=== PATIENT | female | born 1980 | race Caucasian/White ===

== ENCOUNTER → 2019-08-07 11:05 | Outpatient (BNVA) | payer MEDICAID, SELFPAY | PROVIDERS: Referring Provider Physician Assistant; Visit Provider Obstetrics & Gynecology | DX: D25.9 Leiomyoma of uterus, unspecified (principal); N92.0 Excessive and frequent menstruation with regular cycle | CPT/HCPCS: 84443; 85027 ==

== ENCOUNTER 2022-04-02 07:17 | Emergency (ER) | payer MEDICAID, SELFPAY ==
[2022-04-02 07:24] VITALS: BP 164/90; PULSE 79; RESP 18; TEMP 36.6; O2SAT 97; BMI 44.2
--- NOTE | 2022-04-02 07:44 | W.ED.URI ---
HPI - URI/Sore Throat General: Chief Complaint: Upper Respiratory Infection Stated Complaint: Throat sore Time Seen by Provider: 04/02/22 07:40 Source: patient Mode of arrival: ambulatory History of Present Illness: 42-year-old female presents emergency room with complaint of sore throat for the last 2 to 3 days. No nausea vomiting diarrhea or rash. No fever that she is noted. She has had problems with strep pharyngitis in the past. She has not seen anyone for it. No cough no shortness of breath. MD elicited complaint: sore throat Onset (ago): day(s) Consistency: constant Severity: mild Exacerbating factors: nothing Relieving factors: nothing Associated symptoms: Reports change in voice, congestion, nasal congestion and sore throat; Deny abdominal pain, chills, chest pain, cough, diarrhea, epistaxis, ear or mastoid pain, fever(s), headache(s), myalgias, nausea, rhinorrhea, short of breath, sinus pain, stiffness or vomiting Treatments prior to arrival: none Review of Systems Const: Denies: fever(s), chills, malaise or night sweats ENMT: Reports: throat pain and nasal congestion; Denies: ear or mastoid pain, epistaxis or sinus pain Card: Denies: chest pain Resp: Denies: dyspnea, productive cough or non-productive cough GI: Denies: abdominal pain, nausea, vomiting or diarrhea : Denies: flank pain, difficulty voiding, dysuria, urinary frequency or urinary urgency Skin/Breast: Denies: rash or pruritus Neuro: Denies: headache(s) PFSH ED PFSH: Medical History No known health problems Surgical History No history of previous surgery Family History Grandmother Diabetes maternal Social History Smoking and tobacco status: former smoker Quit status (tobacco): has quit using tobacco Year quit tobacco: 8 years ago Alcohol intake: never Additional social history: well- balanced Physical Exam Const: COMMON NORMALS: no acute distress GENERAL APPEARANCE: cooperative and comfortable ORIENTATION/CONSCIOUSNESS: Yes awake, Yes oriented to person, Yes oriented to place and Yes oriented to time HENMT: COMMON NORMALS: normocephalic, atraumatic, hearing grossly normal bilaterally, external ears normal, EAC's normal, TM's normal bilaterally, Normal nasal mucous membranes and turbinates present, moist oral mucous membranes and oropharynx normal HEAD & SCALP: normocephalic and atraumatic NOSE: Normal nasal mucous membranes and turbinates present EXTERNAL EAR: Yes external ears normal EXTERNAL AUDITORY CANAL: EAC's normal TYMPANIC MEMBRANE: TM's normal bilaterally Eye: COMMON NORMALS: Equal, round and reactive pupils present, EOMs intact bilaterally, conjunctivae normal and no scleral icterus CONJUNCTIVA: Yes conjunctivae normal PUPIL: Yes Equal, round and reactive pupils present Neck/C-Spine: COMMON NORMALS: full ROM, no lymphadenopathy, supple and no JVD Lymph: LYMPHATIC: no lymphadenopathy noted and no lymphedema noted Resp: COMMON NORMALS: normal respiratory effort, No retractions, No use of accessory muscles and clear to auscultation bilaterally AUSCULTATION: clear to auscultation bilaterally Cardio: COMMON NORMALS: no JVD, regular rate, regular rhythm and No murmurs present (Cardio) RATE: regular rate RHYTHM: regular rhythm GI: COMMON NORMALS: Soft to palpation and No hepatosplenomegaly present AUSCULTATION: Yes normoactive bowel sounds PALPATION: Yes Soft to palpation, No Tenderness to palpation present (GI), No Guarding due to palpation present (GI) and Yes No hepatosplenomegaly present Extremity: COMMON NORMALS: normal to inspection, capillary refill normal, no clubbing, cyanosis or edema, no calf tenderness and no pedal edema Neuro: SENSORIUM/ORIENTATION: Yes oriented to person, Yes oriented to place and Yes oriented to time Skin: COMMON NORMALS: no rashes or lesions noted GENERAL SKIN EXAM: no rashes or lesions noted Course Vital Signs: Vital signs: Vital Signs Temperature 97.9 F 04/02/22 07:24 Pulse Rate 79 04/02/22 07:24 Respiratory Rate 18 04/02/22 07:24 Blood Pressure 164/90 04/02/22 07:24 Pulse Oximetry 97 04/02/22 07:24 Oxygen Delivery Me thod 04/02/22 07:24 MDM - URI/Sore Throat Medical Decision Making Was likely viral in nature supportive cares follow-up as needed Medical Records I reviewed the patient's medical records. Lab Data I reviewed the patient's lab results. Discharge Plan Discharge Patient Disposition: Home Clinical Impression: Pharyngitis Condition: Stable Prescriptions: No Action acetaminophen [Tylenol Extra Strength] 500 mg tablet 1,000 mg PO Q6H PRN naproxen 250 mg tablet 250 mg PO Q6H PRN Discharge Orders: Discharge ED (Routine); Ordered 04/02/22 Ordered By: Lawrence Taylor Referrals: Sujit Stevenson MD [Primary Care Provider] - Discharge Diet: Usual diet Discharge Activity: Increase activity as tolerated Patient Instructions: Opioid Safety, Pain Management Coding Level of Care Code ED Cupola Tapper for Bob Carrero
== END 2022-04-02 08:07 | disposition home or self-care (01) ==
PROVIDERS: Emergency Provider Family Medicine; PCP Orthopaedic Surgery Foot and Ankle Surgery
DX: J02.9 Acute pharyngitis, unspecified (principal); Z87.891 Personal history of nicotine dependence
CPT/HCPCS: 99283

== ENCOUNTER 2023-10-09 08:56 | Emergency (ER) | payer MEDICAID, SELFPAY ==
[2023-10-09 09:01] VITALS: BP 142/93; PULSE 83; RESP 18; TEMP 37; O2SAT 100
--- NOTE | 2023-10-09 09:18 | PC.PHAR ---
pt states she takes no prescription medications pt states only otc she takes is prn ibuprofen
[2023-10-09 09:31] VITALS: PULSE 74; O2SAT 99
[2023-10-09] MEDS: neomycin-poly-bacitracin oint 28 gm 1 APPLIC TOPICAL (09:33)
--- NOTE | 2023-10-09 09:35 | ED_ITS ---
HPI - Wound/Laceration General: Chief Complaint: Wound/Laceration Stated Complaint: right pinky cut Time Seen by Provider: 10/09/23 09:02 Source: patient Mode of arrival: ambulatory History of Present Illness: 43-year-old female presents emergency ro om she was trying to cut a frozen piece of meat and cut her right hand on the palmar surface of the MP joint. She has approximately 1-1/2 cm laceration no active bleeding medially she has a very superficial laceration that is not full-thickness not gaping no active bleeding. She says her tetanus is up-to-date from a few months ago. She is complaining of pain to the finger and is unable to flex her finger completely. Onset (ago): minute(s) Extremity Location: Right: hand Place: home Patient tetanus UTD: Yes Context: accidental Associated symptoms: Reports pain Treatments prior to arrival: bandage [facility] ED PFSH: Medical History (Updated 10/09/23 @ 09:32 by Lawrence Taylor DO) No known health problems Surgical History No history of previous surgery Family History Grandmother Diabetes maternal Social History Smoking and tobacco/nicotine status: former use of tobacco/nicotine Quit status (tobacco/nicotine): has quit using Year quit tobacco: 8 years ago Alcohol intake: never Substance/Drug Use: never Additional social history: well- balanced Physical Exam Narrative: EXAM NARRATIVE: Examination of the right hand neurovascularly intact however patient is not able to flex at the DIP joint of the right fifth finger there is a 1-1/2 cm lacerat ion on the palmar surface at the MP joint. Procedures Laceration Laceration 1: Site: hand (Palmar surface at the MP joint) Side (If applicable): right Description: linear Depth: simple, single layer Local Anesthetic: lidocaine 1% Amount of anesthesia used (mL): 2 Pre-repair: irrigated extensively Skin layer closed with: nylon Size (cm): 5-0 Number of sutures: 2 Technique: simple, interrupted Course Vital Signs: Vital signs: Vital Signs Temperature 98.6 F 10/09/23 09:01 Pulse Rate 74 10/09/23 09:31 Respiratory Rate 18 10/09/23 09:01 Blood Pressure 142/93 10/09/23 09:01 Pulse Oximetry 99 10/09/23 09:31 Oxygen Delivery Me thod Room Air 10/09/23 09:01 MDM - Wound/Laceration Medical Decision Making Appears patient's lacerated the flexor tendon for the DIP joint. 2 interrupted sutures were used to approximate skin edges of the laceration these are slightly more medial laceration is not full-thickness discussed with the patient we opted not to apply any sutures do not think would really benefit from them at this point. Contacted Dr. Houston for hand surgery he agreed to see the patient next week advised us to have them call the office and make arrangements. Patient's tetanus is up-to-date apply topical antibiotic ointment. Phone number given for Dr. Houston's office. No radiology studies performed this visit Discharge Plan Discharge Patient Disposition: Home Clinical Impression: Hand laceration involving tendon Condition: Stable Prescriptions: No Action Advil 200 mg Tablet 400 - 600 mg PO Q6H PRN (Reason: Pain) Discharge Orders: Discharge ED (Routine); Ordered 10/09/23 Ordered By: Lawrence Taylor Referrals: Sujit Stevenson MD [Primary Care Provider] - Patient Instructions: Opioid Safety, Pain Management Activity Restrictions/Additional Instructions: Thank you for choosing [facility] for your healthcare needs today. Please realize this is an emergency room and that we are providing you with a medical screening exam and this may not be complete and all inclusive of all the testing and or work up that you may need to determine your ailment or severity of your illness. It is very important that you follow up as instructed or that you return to the Emergency Department should you have concerns or if your condition changes or worsens in any way. You were seen today for laceration to hand laceration was closed however functionally it appears you have cut the tendon to the distal part of your right fifth finger. This should be repaired by hand surgeon. You can contact Dr. Houston at . They will make arrangements for you to be seen for definitive care. Apply topical antibiotic ointment to the wounds on the palm of your hand until you see Dr. Mcdonald. Coding Level of Care Code ED Editing Intern for Bob Carrero
== END 2023-10-09 09:57 | disposition home or self-care (01) ==
PROVIDERS: Emergency Provider Family Medicine; PCP Orthopaedic Surgery Foot and Ankle Surgery
DX: S61.411A Laceration without foreign body of right hand, initial encounter (principal); S66.126A Laceration of flexor muscle, fascia and tendon of right little finger at wrist and hand level, initial encounter; Z87.891 Personal history of nicotine dependence; W26.0XXA Contact with knife, initial encounter
CPT/HCPCS: 12001; 99282

== ENCOUNTER → 2024-04-24 13:39 | Outpatient (BNVA) | payer MEDICAID, SELFPAY | PROVIDERS: PCP Orthopaedic Surgery Foot and Ankle Surgery; Visit Provider Obstetrics & Gynecology | DX: N92.0 Excessive and frequent menstruation with regular cycle (principal) | CPT/HCPCS: 80053; 84443; 85025 ==

== ENCOUNTER → 2024-05-11 08:01 | Outpatient (BNVA) | payer MEDICAID, SELFPAY | PROVIDERS: PCP Orthopaedic Surgery Foot and Ankle Surgery; Visit Provider Obstetrics & Gynecology | DX: N92.6 Irregular menstruation, unspecified (principal); N92.4 Excessive bleeding in the premenopausal period; D25.9 Leiomyoma of uterus, unspecified | CPT/HCPCS: 76830 ==

== ENCOUNTER 2024-05-15 08:44 | Emergency (ER) | payer MEDICAID, SELFPAY ==
[2024-05-15 09:17] VITALS: BP 172/84; PULSE 98; RESP 16; TEMP 36.8; O2SAT 99; BMI 38.7
--- NOTE | 2024-05-15 09:26 | USCV_ITS ---
Tracie Rojas Age: 44 Gender: F : 1980 Exam Date: 05/15/2024 09:46 Ordering Phys: Bev Gillis Technologist: [place] [facility] [place] RT [place]G [place]IN PROCEDURES: Venous duplex imaging was performed in only the right lower extremity. The following venous structures were evaluated: common femoral vein, profunda vein, proximal portion of the greater saphenous vein, superficial femoral vein, and the popliteal vein. In addition, the posterior tibial and peroneal trunk were evaluated. FINDINGS: Normal 2-D Doppler and augmentation and compressibility throughout the lower extremity venous structures. Additional imaging through the proximal calf veins also reveals no thrombus. Limited evaluation of the greater saphenous vein is patent with no thrombus. CONCLUSIONS No evidence of right lower extremity DVT. Mani Alcantar MD (Electronically Signed) Final Date: 15 May 2024 13:25 S
--- NOTE | 2024-05-15 11:00 | W.ED.EXTPRO ---
HPI - Extremity Problem General: Chief complaint: Extremity Problem,Nontraumatic Stated complaint: female issues Time Seen by Provider: 05/15/24 09:26 Source: patient Mode of arrival: ambulatory Limitations: no limitations History of Present Illness: Patient is a nice 44-year-old female presents to ED today with a concern of a blood clot to her right lower extremity. States she began noticing a tender red area few days ago. Concerned as she was recently placed on oral contraception by [employer] due to painful/heavy periods. She is not having any chest pain or shortness of breath. No previous history of DVT/PE. MD Complaint: extremity pain Onset (ago): day(s) Pain Consistency: constant Location: right and lower extremity Radiation: none Relieving factors: nothing Exacerbating factors: nothing Associated symptoms: Reports no associated symptoms; Deny chest pain or fever(s) Context: other (Recently placed on oral contraception.) Related Data Home Medications Medication Instructions Recorded Confirmed ibuprofen 200 mg tablet (Advil) 400 - 600 mg PO Q6H PRN Pain 10/09/23 04/24/24 Previous Rx's Medication Instructions Recorded norethindrone 1 mg-ethinyl 1 tab PO DAILY #84 tabs 04/24/24 estradiol 35 mcg tablet Allergies Allergy/AdvReac Type Severity Reaction Status Date / Time Penicillins Allergy Rash, Verified 05/15/24 09:25 sweaty, vomiting Review of Systems Const: Denies: fever(s), chills, body aches, fatigue or malaise Card: Denies: chest pain Resp: Denies: dyspnea GI: Denies: abdominal pain Musc: Reports: extremity pain; Denies: neck pain, back pain, extremity swelling, joint pain, joint swelling, joint redness, joint warmth or limited range of motion Neuro: Denies: headache(s), numbness in extremities, weakness in extremities, sensory changes or difficulty walking [facility] ED PFSH: Medical History (Updated 05/15/24 @ 11:10 by MARY To) No known health problems Surgical History No history of previous surgery Family History Grandmother Diabetes maternal Mother Thyroid disease Social History (Reviewed 05/15/24 @ 11:08 by FILIBERTO To Smoking and tobacco/nicotine status: former use of tobacco/nicotine (2010) Quit status (tobacco/nicotine): has quit using Year quit tobacco: 8 years ago Alcohol intake: never Substance/Drug Use: never Additional social history: well- balanced Physical Exam Const: COMMON NORMALS: no acute distress, patient oriented x3, no limitations, alert and well nourished GENERAL APPEARANCE: cooperative NUTRITIONAL APPEARANCE: overweight ORIENTATION/CONSCIOUSNESS: Yes awake, Yes oriented to person, Yes oriented to place and Yes oriented to time Resp: COMMON NORMALS: normal respiratory effort and clear to auscultation bilaterally AUSCULTATION: clear to auscultation bilaterally Cardio: COMMON NORMALS: regular rate and regular rhythm RATE: regular rate RHYTHM: regular rhythm Extremity: COMMON NORMALS: full ROM, capillary refill normal, no joint enlargement, no clubbing, cyanosis or edema, no calf tenderness and no pedal edema GENERAL: Yes normal exam except as noted RIGHT LOWER EXTREMITY: Yes lower leg EXTREMITY IMAGE (FRONT): 1. small red palpable cord Neuro: COMMON NORMALS: patient oriented x3, moves all extremities, no focal motor deficits, no sensory deficits noted and gait normal SENSORIUM/ORIENTATION: Yes alert, Yes oriented to person, Yes oriented to place and Yes oriented to time Course Vital Signs: Vital signs: Vital Signs Temperature 98.3 F 05/15/24 09:17 Pulse Rate 98 05/15/24 09:17 Respiratory Rate 16 05/15/24 09:17 Blood Pressure 172/84 05/15/24 09:17 Pulse Oximetry 99 05/15/24 09:17 Oxygen Delivery Me thod Room Air 05/15/24 09:17 MDM - Extremity (Nontraumatic) Medical Decision Making US of R LE venous ordered from waiting room. Spoke to Dru Tre[employer]. No DVT but she does have superficial thrombus. She is going to discontinue her hormone therapy and discuss with Dr. Alarcon in two weeks at her next appointment. Conservative therapies discussed. Return precautions given. Medical Records I reviewed the patient's medical records. XR interpretation done by ED provider, pending radiology final review (per Dru Trevino, [employer]) Discharge Plan Discharge Patient Disposition: Home Clinical Impression: Superficial thrombosis of right lower extremity Condition: Stable Prescriptions: No Action norethindrone-ethin estradiol 1-35 mg-mcg tablet 1 tab PO DAILY Qty: 84 1RF Advil 200 mg Tablet 400 - 600 mg PO Q6H PRN (Reason: Pain) Discharge Orders: Discharge ED (Routine); Ordered 05/15/24 Ordered By: Bev Gillis Referrals: Sujit Stevenson MD [Primary Care Provider] - Patient Instructions: Superficial Thrombophlebitis (ED), Thrombophlebitis - Superficial Coding Level of Care Code ED Senior Linux Systems Administrator for Bob Carrero
[2024-05-15 12:10] VITALS: BP 112/75; PULSE 87; RESP 18; O2SAT 99
[2024-05-15 12:14] VITALS: BP 112/75; PULSE 87; RESP 18; O2SAT 99
== END 2024-05-15 12:15 | disposition home or self-care (01) ==
PROVIDERS: Emergency Provider Physician Assistant; PCP Orthopaedic Surgery Foot and Ankle Surgery
DX: I82.811 Embolism and thrombosis of superficial veins of right lower extremity (principal); Z87.891 Personal history of nicotine dependence
CPT/HCPCS: 93971; 99284

== ENCOUNTER → 2024-05-29 09:02 | Outpatient (BNVA) | payer MEDICAID, SELFPAY | PROVIDERS: PCP Orthopaedic Surgery Foot and Ankle Surgery; Visit Provider Obstetrics & Gynecology | DX: N92.0 Excessive and frequent menstruation with regular cycle (principal) | CPT/HCPCS: 87624 ==

== ENCOUNTER → 2024-08-01 08:41 | Outpatient (BNVA) | payer MEDICAID, SELFPAY | PROVIDERS: PCP Orthopaedic Surgery Foot and Ankle Surgery; Visit Provider Obstetrics & Gynecology | DX: N83.209 Unspecified ovarian cyst, unspecified side (principal) | CPT/HCPCS: 76856 ==

== ENCOUNTER 2024-08-17 11:46 | Day surgery (SDC) | payer MEDICAID, SELFPAY ==
--- NOTE | 2024-08-16 23:59 | P.HP_ITS ---
Same Day Surgery H&P Indication for Procedure/HPI DATE OF PROCEDURE: August 17, 2024 CHIEF COMPLAINT/INDICATIONFOR SURGICAL PROCEDURE: menorrhagia PREOP DIAGNOSIS: menorrhagia PLANNED PROCEDURE: Operation Date: 08/17/24 13:40 Proposed Procedures p Hysteroscopy w/ Endometrial Sampling 08381, N92.0(Not Applicable) - Louie Alarcon MD s Poylpectomy(Not Applicable) - Louie Alarcon MD 44 y.o. history of very heavy periods and a fibroid uterus does not want hysterectomy now scheduled for hysteroscopy, endometrial sampling / polypectomy, mirena intrauterine device insertion Medications/Allergies* Home Medications ?Medication ?Instructions ?Recorded ?Confirmed ?Type ibuprofen 200 mg tablet (Advil) 400 - 600 mg PO Q6H IL N Pain 10/09/23 05/29/24 History Allergies/Adverse Reactions Allergy/AdvReac Type Severity Reaction Status Date / Time Penicillins Allergy Rash, Verified 05/29/24 08:07 sweaty, vomiting Pertinent History/Comorbid Conditions* Medical History (Updated 06/18/24 @ 00:30 by Louie Alarcon MD) No known health problems Surgical History (Updated 08/07/19 @ 10:39 by Robin Noonan MD) No history of previous surgery Family History (Updated 04/24/24 @ 13:10 by Mable Adan CMA) Diabetes Grandmother maternal Thyroid disease Mother Social History Smoking and tobacco/nicotine status: former use of tobacco/nicotine (2010) Quit status (tobacco/nicotine): has quit using Year quit tobacco: 8 years ago Alcohol intake: never Substance/Drug Use: never Additional social history: well- balanced Pertinent Exam Findings alert, oriented x 3, clear to auscultation bilaterally and regular rate & rhythm Recommendations Surgery/Procedure today Coding Level of Care Code Acute Code for Chg Fwd Time Spent (min) 20
[2024-08-17] VITALS (10 sets, daily range): BP systolic 106–158; BP diastolic 55–81; PULSE 83–106; RESP 10–25; TEMP 36.1–36.8; O2SAT 95–100; BMI 35.4
[2024-08-17] MEDS: sodium chloride 0.9% 1,000 ML 30 ML IV (13:00)
--- NOTE | 2024-08-17 13:06 | W.PM.OPSUD ---
Surgery/Procedure H&P Update DATE OF PROCEDURE: August 17, 2024 DATE H&P PERFORMED: 05/29/24 H&P UPDATE INFORMATION: I have reviewed H&P completed within last 30 days, I have examined patient prior to procedure and Changes to prior documentation as noted here CHANGES TO PREVIOUS DOCUMENTATION: patient no longer wants mirena intrauterine device PREOP DIAGNOSIS: abnormal uterine bleeding PLANNED PROCEDURE: Operation Date: 08/17/24 13:40 Proposed Procedures p Hysteroscopy w/ Endometrial Sampling 82118, N92.0(Not Applicable) - Louie Alarcon MD s Poylpectomy(Not Applicable) - Louie Alarcon MD
--- NOTE | 2024-08-17 13:10 | P.OP_ITS ---
Operative Report Date of procedure: August 17, 2024 Pre-op diagnosis: abnormal uterine bleeding Post-op diagnosis: same Post-op findings: cervix high up in vaginal canal Unable to reach with hysteroscope moderately heavy bleeding with bright red blood and clots via os prior to procedure Procedure done: Dilatation and curettage of uterus Implants: none Specimens removed/disposition: endometrial curettings Surgeon: Louie Alarcon MD Anesthesia: MAC Estimated blood loss: none from procedure Complications: none Findings: cervix high up in vaginal canal Unable to reach with hysteroscope moderately heavy bleeding with bright red blood and clots via os prior to procedure Condition: stable Disposition: PACU Brief History: 44 y.o. with abnormal uterine bleeding Procedure: Informed consent signed. Patient was taken to the operating room. Anesthesia was induced. Patient was placed in dorsolithotomy position, prepped and draped for hysteroscopy. A bivalve speculum was placed in the vagina. There was moderate bleeding with clots via the cervical os. The cervix was high up in the vaginal vault and oriented posteriorly at 11 o?clock. The cervix was dilated with Hegar dilators. It was determined that a hysteroscope could not be inserted due to the high position of the cervix and its orientation. The anterior lip of the cervix was grasped with a sharp-toothed tenaculum. The cervix was dilated enough to allow a small curette. A small curette was used to obtain a small amount of en dometrial tissue, this was sent to pathology. The sharp-toothed tenaculum was removed. There was no bleeding from the endometrial cavity or cervix. The patient was then placed supine and awakened and taken to the PACU. Postop condition: stable EBL: none Sponge and instruments counts were normal x 2 Complications: none
[2024-08-17 13:18] LABS: OR HCG Qualitative Urine Negative (Negative)
--- NOTE | 2024-08-17 13:25 | P.ANESASSM_ITS ---
Pre-Anesthetic Assessment Height/Weight: Height 1.6 m Weight 90.718 kg Temp Pulse Resp BP Pulse Ox O2 Del Method 97.2 F L 106 H 18 158/81 100 Room Air 08/17/24 12:35 08/17/24 12:35 08/17/24 12:35 08/17/24 12:35 08/17/24 12:35 08/17/24 12:36 Preop Diagnosis: abnormal uterine bleeding Operation Date: 08/17/24 13:40 Proposed Procedures p Hysteroscopy w/ Endometrial Sampling 73226, N92.0(Not Applicable) - Louie Alracon MD s Poylpectomy(Not Applicable) - Louie Alarcon MD Familial anesthetic complications: none Was Beta Olvin taken within 24 hours: N/A Was Clonidine taken within 24 hours: N/A Last intake: Intake Last Liquid Date 08/16/24 Last Liquid Time 22:00 Last Solid Date 08/16/24 Last Solid Time 16:00 Social No alcohol and No tobacco Exam alert, oriented x 3 and clear to auscultation bilaterally Airway Mallampati: Class II Dentition: full History/ROS No significant history except as noted Pulmonary None reported CV/HEM None reported None reported Hepatic None reported GI None reported Metabolic None reported Musc/skel None reported Neuropsych None reported Anesthetic Plan ASA status: 1 Anesthesia: Anesthesia Evaluation and General Risk of > 500 ml blood loss (7ml/kg in children): No Medications/Allergies Home Medications ?Medication ?Instructions ?Recorded ?Confirmed ?Last Taken ?Type ibuprofen 200 mg tablet (Advil) 400 - 600 mg PO Q6H NH N Pain 10/09/23 05/29/24 Unknown History Allergies Allergy/AdvReac Type Severity Reaction Status Date / Time Penicillins Allergy Rash, Verified 05/29/24 08:07 sweaty, vomiting Current Medications Generic Name Dose Route Start Last Admin Trade Name Freq PRN Reason Stop Dose Admin Sodium Chloride 1,000 mls @ 30 mls/hr 08/17/24 12:30 08/17/24 13:00 Sodium Chloride 0.9% IV 08/18/24 12:29 30 mls/hr .Q24H ALCON Administration PFSH Anesthesia Medical History (Updated 06/18/24 @ 00:30 by Louie Alarcon MD) No known health problems Surgical History No history of previous surgery Family History Grandmother Diabetes maternal Mother Thyroid disease Social History Smoking and tobacco/nicotine status: former use of tobacco/nicotine (2010) Quit status (tobacco/nicotine): has quit using Year quit tobacco: 8 years ago Alcohol intake: never Substance/Drug Use: never Additional social history: well- balanced Female Reproductive History Date of last menstrual period: 07/20/24 Data Anesthesia Cardiac Studies: No Data to Display
== END 2024-08-17 15:15 | disposition home or self-care (01) ==
PROVIDERS: Student in an Organized Health Care Education/Training Program; PCP Orthopaedic Surgery Foot and Ankle Surgery; Visit Provider Obstetrics & Gynecology
PROC: (CPT 58120; 2024-08-17 13:30)
DX: N92.0 Excessive and frequent menstruation with regular cycle (principal); D25.9 Leiomyoma of uterus, unspecified; Z87.891 Personal history of nicotine dependence; Z88.0 Allergy status to penicillin
CPT/HCPCS: 58120; 81025; 88305; J1885; J2250; J2704; J3010; J7030

== ENCOUNTER 2024-08-19 12:22 | Emergency (ER) | payer MEDICAID, SELFPAY ==
[2024-08-19 12:23] VITALS: BP 154/74; PULSE 88; RESP 16; TEMP 36.4; O2SAT 100; BMI 35.4
--- NOTE | 2024-08-19 13:32 | ED_ITS ---
HPI - Skin/Abscess/Foreign Bdy 2 General: Chief complaint: Skin/Abscess/Foreign Body Stated complaint: RT arm / had Biopys/ arm hurt, redness Time Seen by Provider: 08/19/24 13:16 History of Present Illness: 44-year-old female presents emergency ro om complaining of redness in the upper posterior aspect of her arms bilaterally. Additionally she has some in the upper chest and a pattern where a low necked T-shirt would leave skin exposed. There is a sharp demarcation. She has not been outside in the sun she does not believe she has been exposed to any UV light and any setting. No difficulty breathing or swallowing no other rash. Associated symptoms: Deny chills or fever(s) Related Data Home Medications ?Medication ?Instructions ?Recorded ?Confirmed ibuprofen 200 mg tablet (Advil) 400 - 600 mg PO Q6H LA N Pain 10/09/23 05/29/24 Previous Rx's ?Medication ?Instructions ?Recorded cetirizine 10 mg tablet 10 mg PO BID #20 tabs methylprednisolone 4 mg tablets in See Rx Instructions PO .COMPLEX 08/19/24 a dose pack (Medrol ([place])) #21 ea Allergies Allergy/AdvReac Type Severity Reaction Status Date / Time Penicillins Allergy Rash, Verified 05/29/24 08:07 sweaty, vomiting Review of Systems 2 Const: Denies: fever(s) or chills Card: Denies: chest pain Resp: Denies: dyspnea GI: Denies: abdominal pain : Denies: dysuria, urinary frequency or urinary urgency Musc: Denies: neck pain or back pain Skin/Breast: Reports: rash and erythema PFSH ED 2 PFSH: Medical History No known health problems Surgical History No history of previous surgery Family History Grandmother Diabetes maternal Mother Thyroid disease Social History Smoking and tobacco/nicotine status: former use of tobacco/nicotine (2010) Quit status (tobacco/nicotine): has quit using Year quit tobacco: 8 years ago Alcohol intake: never Substance/Drug Use: never Additional social history: well- balanced Physical Exam 2 Const: GENERAL APPEARANCE: cooperative ORIENTATION/CONSCIOUSNESS: Yes awake, Yes oriented to person, Yes oriented to place and Yes oriented to time HENMT: COMMON NORMALS: normocephalic, atraumatic and hearing grossly normal bilaterally HEAD & SCALP: normocephalic and atraumatic Resp: COMMON NORMALS: normal respiratory effort, No retractions, No use of accessory muscles and clear to auscultation bilaterally AUSCULTATION: clear to auscultation bilaterally Cardio: COMMON NORMALS: regular rate, regular rhythm and No murmurs present (Cardio) RATE: regular rate RHYTHM: regular rhythm GI: COMMON NORMALS: Soft to palpation and No hepatosplenomegaly present A USCULTATION: Yes normoactive bowel sounds PALPATION: Yes Soft to palpation, No Tenderness to palpation present (GI), No Guarding due to palpation present (GI) and Yes No hepatosplenomegaly present Extremity: COMMON NORMALS: normal to inspection, capillary refill normal, no clubbing, cyanosis or edema, no calf tenderness and no pedal edema Neuro: SENSORIUM/ORIENTATION: Yes oriented to person, Yes oriented to place and Yes oriented to time Skin: COMMON NORMALS: no rashes or lesions noted GENERAL SKIN EXAM: no rashes or lesions noted Course 2 Vital Signs: Vital signs: Vital Signs Temperature 97.6 F 08/19/24 12:23 Pulse Rate 85 08/19/24 14:00 Respiratory Rate 16 08/19/24 14:00 Blood Pressure 127/62 08/19/24 14:00 Pulse Oximetry 98 08/19/24 14:00 Oxygen Delivery Me thod Room Air 08/19/24 12:23 MDM - Skin/Abscess/Foreign Bdy Medicial Decision Making Laboratory test unremarkable she has anemia but this is chronic. There is no signs of active infection no vesicles the areas of redness are on exposed skin most of pattern with assured. No emergent condition no sign of infection at this time will discharge patient home with a prednisone taper and cetirizine 10 mg twice daily if not improving follow-up with primary care Medical Records I reviewed the patient's medical records. Lab Data I reviewed the patient's lab results. 08/19/24 13:42 08/19/24 13:42 Laboratory Results WBC 8.07 10^3/uL (3.29-11.43) 08/19/24 13:42 RBC 3.95 10^6/uL (3.85-5.65) 08/19/24 13:42 Hgb 8.00 g/dL (11.27-16.99) L 08/19/24 13:42 Hct 29.2 % (36-47) L 08/19/24 13:42 MCV 73.9 fl (85-98) L 08/19/24 13:42 MCH 20.3 pg (27-33) L 08/19/24 13:42 MCHC 27.4 g/dL (30-55) L 08/19/24 13:42 RDW 17.9 % (12.1-15.1) H 08/19/24 13:42 Plt Count 316 10^3/cmm (157-399) 08/19/24 13:42 MPV 9.4 fL (7.4-10.4) 08/19/24 13:42 Neut % (Auto) 64.0 % 08/19/24 13:42 Lymph % (Auto) 28.5 % 08/19/24 13:42 [place] % (Auto) 5.0 % 08/19/24 13:42 Eos % (Auto) 1.5 % 08/19/24 13:42 Baso % (Auto) 0.5 % 08/19/24 13:42 Neut # (Auto) 5.17 10^3/uL (1.8-7.7) 08/19/24 13:42 Lymph # (Auto) 2.3 10^3/uL (0.8-4.8) 08/19/24 13:42 [place] # (Auto) 0.4 10^3/uL (0.2-0.9) 08/19/24 13:42 Eos # (Auto) 0.1 10^3/uL (0.0-0.8) 08/19/24 13:42 Baso # (Auto) 0.0 10^3/uL (0.0-0.1) 08/19/24 13:42 Nucleated RBC % (auto) 0 % 08/19/24 13:42 Nucleated RBCs # 0.0 /100WBC 08/19/24 13:42 Sodium 142 mmol/L (136-145) 08/19/24 13:42 Potassium 3.2 mmol/L (3.5-5.1) L 08/19/24 13:42 Chloride 106 mmol/L (98-107) 08/19/24 13:42 Carbon Dioxide 23 mmol/L (22-29) 08/19/24 13:42 Anion Gap 16.2 (5-19) 08/19/24 13:42 BUN 16 mg/dL (6-20) 08/19/24 13:42 Creatinine 0.6 mg/dL (0.5-0.9) 08/19/24 13:42 GFR Calculation 109.6 mL/min (90-130) 08/19/24 13:42 Glucose 135 mg/dL (65-115) H 08/19/24 13:42 Calculated Osmolality 297 mOsm/kg (285-295) H 08/19/24 13:42 Calcium 8.6 mg/dL (8.5-10.5) 08/19/24 13:42 Total Bilirubin 0.2 mg/dL (0.15-1.2) 08/19/24 13:42 AST 14 U/L (0-32) 08/19/24 13:42 ALT 15 U/L (0-33) 08/19/24 13:42 Alkaline Phosphatase 80 U/L (35-105) 08/19/24 13:42 Total Protein 7.1 g/dL (6.6-8.7) 08/19/24 13:42 Albumin 3.7 g/dL (3.5-5.2) 08/19/24 13:42 Globulin 3.4 g/dL (1.3-4.6) 08/19/24 13:42 No radiology studies performed this visit Discharge Plan Discharge Patient Disposition: Home Clinical Impression: Contact dermatitis Condition: Stable Prescriptions: New methylprednisolone [Medrol ([place])] 4 mg tablets,dose pack See Rx Instructions .ROUTE .COMPLEX Qty: 21 0RF Rx Instructions: orally per package directions cetirizine 10 mg tablet 10 mg PO BID Qty: 20 0RF No Action ibuprofen [Advil] 200 mg Tablet 400 - 600 mg PO Q6H PRN (Reason: Pain) Discharge Orders: Discharge ED (Routine); Ordered 08/19/24 Ordered By: Lawrence Taylor Referrals: Sujit Stevenson MD [Primary Care Provider] - Discharge Diet: Usual diet Discharge Activity: Resume usual activity Patient Instructions: Opioid Safety, Pain Management Activity Restrictions/Additional Instructions: Thank you for choosing [facility] for your healthcare needs today. It is very important that you follow up as instructed or that you return to the Emergency Department should you have concerns or if your condition changes or worsens in any way. You were seen for some mild redness on the skin there is no sign of acute infection. It is patterned looks like exposure to something. Your laboratory tests are unremarkable recommend a steroid taper use cetirizine 10 mg 1 pill twice a day follow-up with primary care doctor if not improving Print Language: Maori Coding Level of Care Code ED Records Management Analyst for Bob Carrero
[2024-08-19 13:49] LABS: Basophils % 0.5 %; Eosinophils # 0.1 10^3/uL (0.0-0.8); Eosinophils % 1.5 %; Hematocrit 29.2 % (36-47); Lymphocytes # 2.3 10^3/uL (0.8-4.8); Lymphocytes % 28.5 %; Mean Corpuscular HGB Conc 27.4 g/dL (30-55); Mean Corpuscular Hemoglobin 20.3 pg (27-33); Mean Corpuscular Volume 73.9 fl (85-98); Mean Platelet Volume 9.4 fL (7.4-10.4); Monocytes # 0.4 10^3/uL (0.2-0.9); Neutrophils # 5.17 10^3/uL (1.8-7.7); Nucleated Red Blood Cells % 0 %; Platelet Count 316 10^3/cmm (157-399); Red Blood Count 3.95 10^6/uL (3.85-5.65); Red Cell Distribution Width 17.9 % (12.1-15.1); White Blood Count 8.07 10^3/uL (3.29-11.43)
[2024-08-19 14:00] VITALS: BP 127/62; PULSE 85; RESP 16; O2SAT 98
[2024-08-19] MEDS: methylPREDNISolone sod succ 125 mg/2 mL INJ IVP (14:04)
[2024-08-19 14:06] LABS: Alanine Aminotransferase 15 U/L (0-33); Albumin Level 3.7 g/dL (3.5-5.2); Alkaline Phosphatase 80 U/L (35-105); Anion Gap 16.2 (5-19); Aspartate Amino Transferase 14 U/L (0-32); Blood Urea Nitrogen 16 mg/dL (6-20); Calcium 8.6 mg/dL (8.5-10.5); Carbon Dioxide 23 mmol/L (22-29); Chloride 106 mmol/L (98-107); Creatinine Clr Calc Pharmacy 130.5943; Globulin 3.4 g/dL (1.3-4.6); Glomerular Filtration Rate 109.6 mL/min (90-130); Glucose 135 mg/dL (65-115); Osmolality Calculated 297 mOsm/kg (285-295); Potassium 3.2 mmol/L (3.5-5.1); Sodium 142 mmol/L (136-145); Total Bilirubin 0.2 mg/dL (0.15-1.2); Total Protein 7.1 g/dL (6.6-8.7)
[2024-08-19 14:45] VITALS: BP 111/62; PULSE 73; O2SAT 100
== END 2024-08-19 14:50 | disposition home or self-care (01) ==
PROVIDERS: Emergency Provider Family Medicine; PCP Orthopaedic Surgery Foot and Ankle Surgery
DX: L25.9 Unspecified contact dermatitis, unspecified cause (principal); Z87.891 Personal history of nicotine dependence
CPT/HCPCS: 80053; 85025; 96374; 99284; J2919

== ENCOUNTER 2024-10-24 10:45 | Observation (INO) | payer MEDICAID, SELFPAY ==
[2024-10-24] VITALS (21 sets, daily range): BP systolic 90–142; BP diastolic 35–79; PULSE 72–107; RESP 16–17; TEMP 35.5–36.9; O2SAT 92–100
--- NOTE | 2024-10-24 06:00 | P.HP_ITS ---
Same Day Surgery H&P Indication for Procedure/HPI DATE OF PROCEDURE: October 24, 2024 CHIEF COMPLAINT/INDICATIONFOR SURGICAL PROCEDURE: heavy menstrual bleeding PREOP DIAGNOSIS: heavy menstrual bleeding; uterine fibroids PLANNED PROCEDURE: Operation Date: 10/24/24 07:00 Proposed Procedures p Total Abdominal Hysterectomy 98809, D25.9, N92.0(Not Applicable) - Louie Alarcon MD Medications/Allergies* Home Medications ?Medication ?Instructions ?Recorded ?Confirmed ?Type ibuprofen 200 mg tablet (Advil) 400 - 600 mg PO Q6H SD N Pain 10/09/23 10/23/24 History Allergies/Adverse Reactions Allergy/AdvReac Type Severity Reaction Status Date / Time Penicillins Allergy Rash, Verified 09/04/24 15:45 sweaty, vomiting Pertinent History/Comorbid Conditions* Medical History (Updated 08/27/24 @ 00:00 by YU Faith) No known health problems Surgical History (Updated 08/07/19 @ 10:39 by Robin Noonan MD) No history of previous surgery Family History (Updated 04/24/24 @ 13:10 by Mable Adan CMA) Diabetes Grandmother maternal Thyroid disease Mother Social History Smoking and tobacco/nicotine status: former use of tobacco/nicotine (2010) Quit status (tobacco/nicotine): has quit using Year quit tobacco: 8 years ago Alcohol intake: never Substance/Drug Use: never Additional social history: well- balanced Pertinent Exam Findings alert, oriented x 3, clear to auscultation bilaterally and regular rate & rhythm Recommendations Surgery/Procedure today Coding Level of Care Code Acute Code for Chg Fwd
[2024-10-24 06:07] LABS: OR HCG Qualitative Urine Negative (Negative)
[2024-10-24] MEDS: sodium chloride 0.9% 1,000 ML 30 ML IV (06:37)
[2024-10-24] MEDS: scopolamine 1 mg PATCH 1 PATCH TRANSDERMA (06:43)
[2024-10-24 06:47] LABS: Basophils # 0.1 10^3/uL (0.0-0.1); Eosinophils # 0.1 10^3/uL (0.0-0.8); Eosinophils % 2.5 %; Hematocrit 34.2 % (36-47); Lymphocytes # 1.4 10^3/uL (0.8-4.8); Lymphocytes % 29.4 %; Mean Corpuscular HGB Conc 27.8 g/dL (30-55); Mean Corpuscular Volume 72.2 fl (85-98); Mean Platelet Volume 9.2 fL (7.4-10.4); Monocytes # 0.2 10^3/uL (0.2-0.9); Monocytes % 4.9 %; Neutrophils # 3.02 10^3/uL (1.8-7.7); Nucleated Red Blood Cells % 0 %; Platelet Count 361 10^3/cmm (157-399); Red Blood Count 4.74 10^6/uL (3.85-5.65); Red Cell Distribution Width 16.7 % (12.1-15.1); White Blood Count 4.87 10^3/uL (3.29-11.43)
--- NOTE | 2024-10-24 06:50 | W.PM.OPSUD ---
Surgery/Procedure H&P Update DATE OF PROCEDURE: October 24, 2024 DATE H&P PERFORMED: 10/24/24 H&P UPDATE INFORMATION: I have reviewed H&P completed within last 30 days, I have examined patient prior to procedure and No changes to prior documentation PREOP DIAGNOSIS: uterine fibroids PLANNED PROCEDURE: Operation Date: 10/24/24 07:00 Proposed Procedures p Total Abdominal Hysterectomy 95442, D25.9, N92.0(Not Applicable) - Louie Alarcon MD
--- NOTE | 2024-10-24 06:59 | P.ANESASSM_ITS ---
Pre-Anesthetic Assessment Height/Weight: Height 1.6 m Weight 99.79 kg Temp Pulse Resp BP Pulse Ox O2 Del Method 97.7 F 91 16 142/79 100 Room Air 10/24/24 06:09 10/24/24 06:09 10/24/24 06:09 10/24/24 06:09 10/24/24 06:09 10/24/24 06:09 Preop Diagnosis: uterine fibroids Operation Date: 10/24/24 07:00 Proposed Procedures p Total Abdominal Hysterectomy 12337, D25.9, N92.0(Not Applicable) - Louie Alarcon MD Familial anesthetic complications: None Was Beta Olvin taken within 24 hours: N/A Was Clonidine taken within 24 hours: N/A Last intake: Intake Last Liquid Date 10/23/24 Last Liquid Time 19:00 Last Solid Date 10/23/24 Last Solid Time 15:30 Social No alcohol and No tobacco Exam alert, oriented x 3, clear to auscultation bilaterally and regular rate & rhythm Airway Mallampati: Class II Dentition: full Anesthetic Plan ASA status: 2 Anesthesia: General Risk of > 500 ml blood loss (7ml/kg in children): No Medications/Allergies Home Medications ?Medication ?Instructions ?Recorded ?Confirmed ?Last Taken ?Type ibuprofen 200 mg tablet (Advil) 400 - 600 mg PO Q6H FL N Pain 10/09/23 10/23/24 10/22/24 History Allergies Allergy/AdvReac Type Severity Reaction Status Date / Time Penicillins Allergy Rash, Verified 09/04/24 15:45 sweaty, vomiting Current Medications Generic Name Dose Route Start Last Admin Trade Name Freq PRN Reason Stop Dose Admin Sodium Chloride 1,000 mls @ 30 mls/hr 10/24/24 06:15 10/24/24 06:37 Sodium Chloride 0.9% IV 10/25/24 06:14 30 mls/hr .Q24H ALCON Administration PFSH Anesthesia Medical History No known health problems Surgical History No history of previous surgery Family History Grandmother Diabetes maternal Mother Thyroid disease Social History Smoking and tobacco/nicotine status: former use of tobacco/nicotine (2010) Quit status (tobacco/nicotine): has quit using Year quit tobacco: 8 years ago Alcohol intake: never Substance/Drug Use: never Additional social history: well- balanced Data Anesthesia 10/24/24 06:29 10/24/24 06:29 Short CBC 10/24/24 Range/Units 06:29 WBC 4.87 (3.29-11.43) 10^3/uL Hgb 9.50 L (11.27-16.99) g/dL Hct 34.2 L (36-47) % MCV 72.2 L (85-98) fl Plt Count 361 (157-399) 10^3/cmm Neut % (Auto) 62.0 % Neut # (Auto) 3.02 (1.8-7.7) 10^3/uL Cardiac Studies: 2 No Data to Display
[2024-10-24] MEDS: metroNIDAZOLE IV 500 MG/100 ML PREMIX 100 MG IV (07:00)
[2024-10-24] MEDS: ceFAZolin 2,000 mg SDV 2000 MG IVP (07:01)
[2024-10-24 07:06] LABS: Blood Urea Nitrogen 8 mg/dL (6-20); Calcium 9.3 mg/dL (8.5-10.5); Carbon Dioxide 24 mmol/L (22-29); Chloride 104 mmol/L (98-107); Creatinine Clr Calc Pharmacy 117.9356; Glomerular Filtration Rate 91.8 mL/min (90-130); Glucose 89 mg/dL (65-115); Osmolality Calculated 288 mOsm/kg (285-295); Sodium 140 mmol/L (136-145)
[2024-10-24] MEDS: sodium chloride 0.9% 50 mL Bag XX (07:39)
[2024-10-24] MEDS: BUPivacaine liposome 13.3 mg/mL SDV 20 mL 266 MG INFILTRATI (07:39)
[2024-10-24] MEDS: BUPivacaine 0.5% INJ 30 mL XX (07:39)
[2024-10-24 09:21] LABS: Hematocrit 26.5 % (36-47)
--- NOTE | 2024-10-24 09:48 | PM.OP ---
Operative Report Date of procedure: October 24, 2024 Pre-op diagnosis: Uterine fibroids Post-op diagnosis: same Post-op findings: Enlarged uterus densely adhered to the rectum Procedure done: Exploratory laparotomy Implants: N/A Specimens removed/disposition: N/A Pathology: none sent Surgeon: Lon Alvarenga MD Anesthesia: General Estimated blood loss (mL): 200 Complications: N/A Findings: Densely adhered uterus to the rectum. Aborted procedure to avoid injury to the rectum. Condition: stable Disposition: PACU Brief History: 44-year-old female who presented with uterine fibroids. I was consulted intraoperatively to help with exposure, and to determine feasibility of dissecting the uterus off the rectum. Refer to Dr. Alarcon's note for full details. Procedure: I came to the OR once Dr. Alarcon had exposed the uterus through a Pfannenstiel incision. At this point it seemed like the rectum was densely adhered to the uterus. We did not have adequate exposure with the Pfannenstiel incision alone. Therefore we proceeded with a midline incision for exploratory laparotomy to obtain adequate exposure. Electrocautery was used to dissect down to the fascial layer. The fascia was then incised and adequate exposure was then obtained. The colon was inspected and it was intact. The rectum on the other hand was completely adhered to the uterus. At this point the decision was made to abort the procedure in order to avoid a iatrogenic injury to the rectum or the ureters. She will need to be referred to higher level of care for urology and colorectal surgery assistance. I then assisted Dr. Alarcon in obtaining adequate hemostasis. The fascia at the midline was closed using 0 looped PDS.
[2024-10-24] MEDS: fentaNYL 50 mcg/mL INJ 2mL IVP ×2 (10:45→11:00)
[2024-10-24] MEDS: ondansetron 2 mg/ML SDV 2 mL 4 MG IVP ×2 (11:20→11:35)
--- NOTE | 2024-10-24 11:45 | ANE.PACU2 ---
Inpatient post-anesthesia follow up: Airway intact: Yes Vital signs: Temperature 97.9 F Pulse Rate 89 Respiratory Rate 16 Blood Pressure 110/63 Pulse Oximetry 97 Oxygen Delivery Me thod Room Air Oxygen Flow Rate Fraction of Inspir ed Oxygen Hydration adequate: Yes Nausea and vomiting: No Pain level: 1 Mental status: Baseline
--- NOTE | 2024-10-24 12:10 | PM.OP ---
Operative Report Date of procedure: October 24, 2024 Pre-op diagnosis: uterine fibroids heavy menstrual bleeding Post-op diagnosis: same Post-op findings: Uterus 24-week size with uterine fibroids Dense adhesions between bowel / rectum and the posterior surface of the uterus Dense adhesions between left adnexae and bowel Procedure done: Exploratory laparotomy Implants: none Specimens removed/disposition: none Surgeon: Louie Alarcon MD [employer] Counter Clerk: Dr. Alvarenga Anesthesia: General Estimated blood loss (mL): 200 Complications: none Findings: Uterus 24-week size with uterine fibroids Dense adhesions between bowel / rectum and the posterior surface of the uterus Dense adhesions between left adnexae and bowel Condition: stable Disposition: PACU Brief History: 44 y.o. with large uterine fibroids and heavy menstrual bleeding Procedure: Informed consent obtained. The patient was taken to the operating room and placed supine on the table. General endotracheal anesthesia was induced. The abdomen was prepped and draped in the usual sterile fashion. A mcdowell catheter was placed which drained clear urine. A pfannenstiel incision was made and carried down through skin and subcutaneous tissue and fascia. The fascia was sharply incised. The rectus muscles were and the abdomen was entered bluntly in the midline. The uterus was markedly enlarged, approximately 24-week size, with fibroids. Exploration further revealed there were dense adhesions between the bowel and the posterior surface of the uterus. An intraoperative consultation with general surgeon, Dr. Alvarenga, was obtained. A midline incision was made to allow for adequate exposure. Due to the dense adhesions between the rectum and the uterus, and the possibility of perforating the rectum during any dissection, it was decided to abort the operation and refer the patient to a higher center for further care. The surgical site was examined for bleeding. Good hemostasis was seen. The midline fascia was closed with PDS running suture. The low transverse fascia was closed with O-Vicryl. The subcutaneous tissue was irrigated and inspected for hemostasis. The skin incisions were closed with skin stapes. The patient was then awakened, extubated, and taken to the recovery room. Postoperative condition: stable EBL: 200 cc Complications: none Sponge, needle, instruments counts were correct x two.
[2024-10-24] MEDS: ketorolac 30 mg/mL INJ IVP ×3 (12:12→23:56)
[2024-10-24] MEDS: dextrose 5%-lactated ringers 1,000 ML 125 ML IV ×2 (12:13→20:11)
[2024-10-24] MEDS: metoclopramide 5 mg/mL SDV 2 mL 10 MG IVP (12:13)
[2024-10-24] MEDS: HYDROcodone-acetaminophen 5-325 mg Tablet PO ×2 (15:22→22:04)
[2024-10-24] MEDS: ondansetron 2 mg/ML SDV 2 mL 4 MG (18:35)
[2024-10-24] MEDS: simethicone 80 mg Chew PO (18:37)
[2024-10-25] MEDS: dextrose 5%-lactated ringers 1,000 ML 125 ML IV (03:58)
[2024-10-25 06:00] VITALS: BP 109/60; PULSE 89; RESP 16; TEMP 36.6; O2SAT 98
[2024-10-25] MEDS: ketorolac 30 mg/mL INJ IVP (06:13)
[2024-10-25 06:44] LABS: Hematocrit 24.7 % (36-47); Mean Corpuscular HGB Conc 29.1 g/dL (30-55); Mean Corpuscular Hemoglobin 21.4 pg (27-33); Mean Corpuscular Volume 73.5 fl (85-98); Platelet Count 322 10^3/cmm (157-399); Red Blood Count 3.36 10^6/uL (3.85-5.65); Red Cell Distribution Width 16.8 % (12.1-15.1); White Blood Count 9.42 10^3/uL (3.29-11.43)
[2024-10-25] MEDS: HYDROcodone-acetaminophen 5-325 mg Tablet PO (10:14)
[2024-10-25] MEDS: docusate sodium 100 mg Capsule PO (10:14)
--- NOTE | 2024-10-25 12:15 | P.PN_ITS ---
EXHAUST WORKER Subjective 2 Subjective: Interval history: Mild incisional pain Eating, voiding, ambulating well Vitals/I&O/Wt Last Vital Signs Temp 97.6 F 10/25/24 15:50 Pulse 100 10/25/24 15:50 Resp 16 10/25/24 15:50 BP 117/53 10/25/24 15:50 Pulse Ox 100 10/25/24 15:50 O2 Del Method Room Air 10/25/24 06:00 Physical Exam 2 Narrative: Afebrile, VS normal General comfortable, awake, alert Lungs clear Cor: RRR Abd: soft, nondistended Mild incisional tenderness Wound clean and dry Ext no edema. Nontender Urinary Catheter Management: Serrano Latex: Cath Placed During This Visit: yes, but has since been removed by the nurse Reason for Continuing Indwelling Catheter: Perioperative Use in Selected Surgeries Date Urinary Catheter Removed: 10/25/24 Time Urinary Catheter Discontinued: 06:10 Data 10/25/24 06:20 10/24/24 06:29 A&P Assessment and plan (1) S/P exploratory laparotomy: POD #1 exploratory laparotomy Plan discharge home today RTO one week Instructions / precautions given PDMP PDMP Reviewed: Last Reviewed 10/25/24 15:18 EDT by Louie Alarcon MD Attestations 2 Medical Necessity Statement*: patient s/p exploratory laparotomy, plan to discharge to home today Coding Level of Care Code Acute Code for Chg Fwd Diagnoses S/P exploratory laparotomy Z98.890
--- NOTE | 2024-10-25 12:25 | P.DS_ITS ---
Discharge Providers PAPER CUP MACHINE TENDER Date of Admission: 10/24/24 10:45 Date of Discharge: 10/25/24 Attending Provider at Admission: Louie Alarcon MD Attending Provider at Discharge: Louie Alarcon MD Consults: General Surgery Primary PAPER CUP MACHINE TENDER: Louie Alarcon MD Primary Care Provider: Sujit Stevenson MD Diagnoses at Discharge Discharge Diagnosis (1) S/P exploratory laparotomy: Details from hospital stay: 44 y.o. history of heavy and prolonged menstrual periods history of large uterine fibroids admitted for hysterectomy At time of exploratory laparotomy, uterus was found to be markedly enlarged to 24-week size dense adhesions were found between bowel / rectum and the posterior surface of the uterus dense adhesions were found between the left adnexa and bowel Intraoperative consultation was obtained from General Surgery It was decided that hysterectomy was not to be performed due to risk of injury to the rectum An inverted T-incision was closed patient did well postoperatively and was discharged to home on the first postoperative day Patient will be referred to [facility] Status: Acute Reason for Visit Reason for Visit: D25.9 Brief History: 44 y.o. history of heavy and prolonged menstrual periods history of large uterine fibroids admitted for hysterectomy Hospital Course Hospital Course 44 y.o. admitted for hysterectomy for large uterine fibroids intraoperatively, patient was found to have a 24-week size uterus with fibroids there were dense adhesions between bowel and rectum and the posterior surface of the uterus there were also dense adhesions between the left adnexae and the bowel general surgery consult was obtained Due to the dense adhesions between the rectum and the uterus, and the possibility of perforating the rectum during any dissection, it was decided to abort the operation and refer the patient to a higher center of further care. Postoperatively, patient did well She was discharged to home on the first postoperative day She will return in one week for followup In the meantime, [facility] Physical Exam Narrative: Afebrile, VS normal General comfortable, awake, alert Lungs clear Cor: RRR Abd: soft, nondistended Mild incisional tenderness Wound clean and dry Ext no edema. Nontender Urinary Catheter Management: Serrano Latex: Cath Placed During This Visit: yes, but has since been removed by the nurse Reason for Continuing Indwelling Catheter: Perioperative Use in Selected Surgeries Date Urinary Catheter Removed: 10/25/24 Time Urinary Catheter Discontinued: 06:10 History History History 2 Term 1 0 Miscarriages/Ectopic 1 Living Children 1 Discharge Data Studies Completed and Pending Laboratory Results WBC 9.42 10^3/uL (3.29-11.43) 10/25/24 06:20 RBC 3.36 10^6/uL (3.85-5.65) L 10/25/24 06:20 Hgb 7.20 g/dL (11.27-16.99) L 10/25/24 06:20 Hct 24.7 % (36-47) L 10/25/24 06:20 MCV 73.5 fl (85-98) L 10/25/24 06:20 MCH 21.4 pg (27-33) L 10/25/24 06:20 MCHC 29.1 g/dL (30-55) L 10/25/24 06:20 RDW 16.8 % (12.1-15.1) H 10/25/24 06:20 Plt Count 322 10^3/cmm (157-399) 10/25/24 06:20 MPV 9.0 fL (7.4-10.4) 10/25/24 06:20 Neut % (Auto) 62.0 % 10/24/24 06: Lymph % (Auto) 29.4 % 10/24/24 06: [place] % (Auto) 4.9 % 10/24/24 06: Eos % (Auto) 2.5 % 10/24/24 06: Baso % (Auto) 1.0 % 10/24/24 06: Neut # (Auto) 3.02 10^3/uL (1.8-7.7) 10/24/24 06: Lymph # (Auto) 1.4 10^3/uL (0.8-4.8) 10/24/24 06: [place] # (Auto) 0.2 10^3/uL (0.2-0.9) 10/24/24 06:29 Eos # (Auto) 0.1 10^3/uL (0.0-0.8) 10/24/24 06:29 Baso # (Auto) 0.1 10^3/uL (0.0-0.1) 10/24/24 06:29 Nucleated RBC % (auto) 0 % 10/24/24 06: Nucleated RBCs # 0.0 /100WBC 10/24/24 06: Sodium 140 mmol/L (136-145) 10/24/24 06: Potassium 4.0 mmol/L (3.5-5.1) 10/24/24 06: Chloride 104 mmol/L (98-107) 10/24/24 06: Carbon Dioxide 24 mmol/L (22-29) 10/24/24 06: Anion Gap 16.0 (5-19) 10/24/24 06: BUN 8 mg/dL (6-20) 10/24/24 06: Creatinine 0.7 mg/dL (0.5-0.9) 10/24/24 06: GFR Calculation 91.8 mL/min (90-130) 10/24/24 06: Glucose 89 mg/dL (65-115) 10/24/24 06: Calculated Osmolality 288 mOsm/kg (285-295) 10/24/24 06: Calcium 9.3 mg/dL (8.5-10.5) 10/24/24 06:29 Urine HCG, Qual Negative (Negative) 10/24/24 06:04 Blood Type A Positive 10/24/24 06:29 Rho(D) Type Rh positive 10/24/24 06:29 Antibody Screen Negative 10/24/24 06:29 Crossmatch See Detail 10/24/24 06:29 Procedures Performed exploratory laparotomy Vitals Last Vital Signs Temp 97.6 F 10/25/24 15:50 Pulse 100 10/25/24 15:50 Resp 16 10/25/24 15:50 BP 117/53 10/25/24 15:50 Pulse Ox 100 10/25/24 15:50 O2 Del Method Room Air 10/25/24 06:00 Results Labs OB ([facility]): Blood Type A Positive 10/24/24 Antibody Screen Negative 10/24/24 Hct, (36-47) 24.7 % L 10/25/24 Hgb, (11.27-16.99) 7.20 g/dL L 10/25/24 Rho(D) Type Rh positive 10/24/24 Plt Count, (157-399) 322 10^3/cmm 10/25/24 TSH, (0.27-4.20) 2.58 uIU/mL 04/24/24 Pap Smear Interpret See note 05/29/24 Discharge Plan Discharge Patient Disposition: Home Condition: Stable Prescriptions: New oxycodone-acetaminophen [Percocet] 5-325 mg tablet 1 tab PO Q8H PRN (Reason: pain) Qty: 30 0RF Continued ibuprofen [Advil] 200 mg Tablet 400 - 600 mg PO Q6H PRN (Reason: Pain) No Action tramadol 50 mg tablet 50 mg PO BID PRN (Reason: pain) Qty: 60 0RF clindamycin HCl [Cleocin HCl] 300 mg capsule 300 mg PO TID Qty: 30 0RF Discharge Orders: Discharge Order (Routine); Ordered 10/25/24 Ordered By: Louie Alarcon Referrals: Louie Alarcon MD [Physician, PAPER CUP MACHINE TENDER] - 11/01/24 11:15 am Discharge Diet: Usual diet Discharge Activity: Increase activity as tolerated Patient Instructions: Oxycodone/Acetaminophen (By mouth) (Percocet), Acute Wound Care (DC), OB Abdominal Surgery - [facility], Opioid Safety, Post Anesthesia Care Discharge Attestations PAPER CUP MACHINE TENDER Time Spent in Discharge Care*: less than 30 min Coding Level of Care Code Acute Code for Chg Fwd Diagnoses S/P exploratory laparotomy Z98.890
[2024-10-25 15:50] VITALS: BP 117/53; PULSE 100; RESP 16; TEMP 36.4; O2SAT 100
--- NOTE | 2024-11-14 16:37 | PM.OBGYDC ---
Discharge Providers APPLICATION INTEGRATION ENGINEER Date of Admission: 10/24/24 10:45 Date of Discharge: 10/25/24 Attending Provider at Admission: Louie Alarcon MD Attending Provider at Discharge: Louie Alarcon MD Consults: General Surgery Primary APPLICATION INTEGRATION ENGINEER: Louie Alarcon MD Primary Care Provider: Sujit Stevenson MD Reason for Visit Reason for Visit: D25.9 Brief History: 44 y.o. admitted for hysterectomy for large uterine fibroids Hospital Course Hospital Course 44 y.o. admitted for hysterectomy for large uterine fibroids intraoperatively, patient was found to have a 24-week size uterus with fibroids there were dense adhesions between bowel and rectum and the posterior surface of the uterus there were also dense adhesions between the left adnexae and the bowel general surgery consult was obtained Due to the dense adhesions between the rectum and the uterus, and the possibility of perforating the rectum during any dissection, it was decided to abort the operation and refer the patient to a higher center of further care. Postoperatively, patient did well She was discharged to home on the first postoperative day She will return in one week for followup In the meantime, an appointment was made for the patient to be seen at [facility], [place]. Physical Exam Narrative: Afebrile, VS normal General comfortable, awake, alert Lungs clear Cor: RRR Abd: soft, nondistended Mild incisional tenderness Wound clean and dry Ext no edema. Nontender Urinary Catheter Management: Serrano Latex: Cath Placed During This Visit: yes, but has since been removed by the nurse Reason for Continuing Indwelling Catheter: Perioperative Use in Selected Surgeries Date Urinary Catheter Removed: 10/25/24 Time Urinary Catheter Discontinued: 06:10 History History History 2 Term 1 0 Miscarriages/Ectopic 1 Living Children 1 Discharge Data Studies Completed and Pending Laboratory Results WBC 9.42 10^3/uL (3.29-11.43) 10/25/24 06:20 RBC 3.36 10^6/uL (3.85-5.65) L 10/25/24 06:20 Hgb 7.20 g/dL (11.27-16.99) L 10/25/24 06:20 Hct 24.7 % (36-47) L 10/25/24 06:20 MCV 73.5 fl (85-98) L 10/25/24 06:20 MCH 21.4 pg (27-33) L 10/25/24 06: MCHC 29.1 g/dL (30-55) L 10/25/24 06: RDW 16.8 % (12.1-15.1) H 10/25/24 06:20 Plt Count 322 10^3/cmm (157-399) 10/25/24 06:20 MPV 9.0 fL (7.4-10.4) 10/25/24 06:20 Neut % (Auto) 62.0 % 10/24/24 06: Lymph % (Auto) 29.4 % 10/24/24 06: [place] % (Auto) 4.9 % 10/24/24 06: Eos % (Auto) 2.5 % 10/24/24 06: Baso % (Auto) 1.0 % 10/24/24 06: Neut # (Auto) 3.02 10^3/uL (1.8-7.7) 10/24/24 06: Lymph # (Auto) 1.4 10^3/uL (0.8-4.8) 10/24/24 06: [place] # (Auto) 0.2 10^3/uL (0.2-0.9) 10/24/24 06: Eos # (Auto) 0.1 10^3/uL (0.0-0.8) 10/24/24 06: Baso # (Auto) 0.1 10^3/uL (0.0-0.1) 10/24/24 06: Nucleated RBC % (auto) 0 % 10/24/24 06: Nucleated RBCs # 0.0 /100WBC 10/24/24 06: Sodium 140 mmol/L (136-145) 10/24/24 06: Potassium 4.0 mmol/L (3.5-5.1) 10/24/24 06: Chloride 104 mmol/L (98-107) 10/24/24 06: Carbon Dioxide 24 mmol/L (22-29) 10/24/24 06: Anion Gap 16.0 (5-19) 10/24/24 06: BUN 8 mg/dL (6-20) 10/24/24 06: Creatinine 0.7 mg/dL (0.5-0.9) 10/24/24 06:29 GFR Calculation 91.8 mL/min (90-130) 10/24/24 06: Glucose 89 mg/dL (65-115) 10/24/24 06:29 Calculated Osmolality 288 mOsm/kg (285-295) 10/24/24 06:29 Calcium 9.3 mg/dL (8.5-10.5) 10/24/24 06:29 Urine HCG, Qual Negative (Negative) 10/24/24 06:04 Blood Type A Positive 10/24/24 06:29 Rho(D) Type Rh positive 10/24/24 06:29 Antibody Screen Negative 10/24/24 06:29 Crossmatch See Detail 10/24/24 06:29 Procedures Performed exploratory laparotomy Vitals Last Vital Signs Temp 97.6 F 10/25/24 15:50 Pulse 100 10/25/24 15:50 Resp 16 10/25/24 15:50 BP 117/53 10/25/24 15:50 Pulse Ox 100 10/25/24 15:50 O2 Del Method Room Air 10/25/24 06:00 Results Labs OB ([facility]): Blood Type A Positive 10/24/24 Antibody Screen Negative 10/24/24 Hct, (36-47) 24.7 % L 10/25/24 Hgb, (11.27-16.99) 7.20 g/dL L 10/25/24 Rho(D) Type Rh positive 10/24/24 Plt Count, (157-399) 322 10^3/cmm 10/25/24 TSH, (0.27-4.20) 2.58 uIU/mL 04/24/24 Pap Smear Interpret See note 05/29/24 Discharge Plan Discharge Patient Disposition: Home Condition: Stable Prescriptions: New oxycodone-acetaminophen [Percocet] 5-325 mg tablet 1 tab PO Q8H PRN (Reason: pain) Qty: 30 0RF Continued ibuprofen [Advil] 200 mg Tablet 400 - 600 mg PO Q6H PRN (Reason: Pain) No Action tramadol 50 mg tablet 50 mg PO BID PRN (Reason: pain) Qty: 60 0RF clindamycin HCl [Cleocin HCl] 300 mg capsule 300 mg PO TID Qty: 30 0RF Discharge Orders: Discharge Order (Routine); Ordered 10/25/24 Ordered By: Louie Alarcon Referrals: Louie Alarcon MD [Physician, APPLICATION INTEGRATION ENGINEER] - 11/01/24 11:15 am Discharge Diet: Usual diet Discharge Activity: Increase activity as tolerated Patient Instructions: Oxycodone/Acetaminophen (By mouth) (Percocet), Acute Wound Care (DC), OB Abdominal Surgery - [facility], Opioid Safety, Post Anesthesia Care Discharge Attestations APPLICATION INTEGRATION ENGINEER Time Spent in Discharge Care*: less than 30 min Coding Level of Care Code Acute Code for Chg Fwd
== END 2024-10-25 15:55 | disposition home or self-care (01) ==
LOC: OBGYN 10:46
PROVIDERS: Anesthesiology; Student in an Organized Health Care Education/Training Program; Admitting Provider Obstetrics & Gynecology; PCP Orthopaedic Surgery Foot and Ankle Surgery; Visit Provider Obstetrics & Gynecology
PROC: 0UT90ZZ Resection of Uterus, Open Approach (ICD-10-PCS; CPT 58150; principal; 2024-10-24 07:00)
PROC: (CPT 49000; 2024-10-24 07:00)
DX: D25.9 Leiomyoma of uterus, unspecified (principal); N92.0 Excessive and frequent menstruation with regular cycle; Z87.891 Personal history of nicotine dependence
CPT/HCPCS: 49000; 36415; 80048; 81025; 85014; 85018; 85025; 85027; 86850; 86900; 86920; 96374; 96376; A4216; G0378; J0131; J0666; J0690; J1100; J1171; J1200; J1885; J2250; J2371; J2405; J2704; J2765; J3010; J3490; J7030; J7121; J9999; P9016; P9045

== ENCOUNTER 2025-06-17 18:28 | Emergency (ER) | payer MEDICAID, SELFPAY ==
--- NOTE | 2025-06-17 18:33 | XRR_ITS ---
PROCEDURE INFORMATION: Exam: XR Left Hand Exam date and time: 06/17/2025 6:43 PM Age: 45 years old Clinical indication: Injury or trauma; Cheese slicer fell on top of left hand. Multiple small lacerations to fingers. TECHNIQUE: Imaging protocol: Radiologic exam of the left hand. Views: 3 or more views. COMPARISON: No relevant prior studies available. FINDINGS: Bones/joints: Normal. Soft tissues: Normal. XR/XR hand LT min 3V* [id number] IMPRESSION: No acute findings.
--- NOTE | 2025-06-17 18:34 | ED_ITS ---
HPI - Extremity Injury (Upper) General: Chief Complaint: Extremity Injury, Upper Stated Complaint: LT hand laceration Time Seen by Provider: 06/17/25 18:30 Source: patient Mode of arrival: ambulatory Limitations: no limitations History of Present Illness: 45-year-old female states roughly 2 hour s ago she had a cheese slicer on the dorsum of her back tufter at work. States had some pain mainly in the middle finger since the event she has some abrasions to the hand as well no bleeding at this time she is up-to-date on her tetanus rates her pain a 3 out of 10 Related Data Home Medications ?Medication ?Instructions ?Recorded ?Confirmed ibuprofen 200 mg tablet (Advil) 400 - 600 mg PO Q6H SD N Pain 10/09/23 11/16/24 Previous Rx's ?Medication ?Instructions ?Recorded oxycodone-acetaminophen 5 mg-325 1 tab PO Q8H PRN pain #30 tabs 10/25/24 mg tablet (Percocet) tramadol 50 mg tablet 50 mg PO BID PRN pain #60 ta bs 10/30/24 clindamycin HCl 300 mg capsule 300 mg PO TID #30 caps 11/08/24 (Cleocin HCl) Allergies Allergy/AdvReac Type Severity Reaction Status Date / Time Penicillins Allergy Rash, Verified 11/16/24 08:50 sweaty, vomiting Review of Systems Musc: Reports: extremity pain [facility] ED PFSH: Medical History No known health problems Surgical History No history of previous surgery Family History Grandmother Diabetes maternal Mother Thyroid disease Social History Smoking and tobacco/nicotine status: former use of tobacco/nicotine (2010) Quit status (tobacco/nicotine): has quit using Year quit tobacco: 8 years ago Alcohol intake: never Substance/Drug Use: never Additional social history: well- balanced Physical Exam Const: COMMON NORMALS: no acute distress, patient oriented x3 and healthy appearing HENMT: COMMON NORMALS: normocephalic and atraumatic HEAD & SCALP: normocephalic and atraumatic Neck/C-Spine: COMMON NORMALS: full ROM and supple Chest: COMMONS NORMALS: normal inspection of the chest Resp: COMMON NORMALS: normal respiratory effort Cardio: COMMON NORMALS: regular rate RATE: regular rate Extremity: COMMON NORMALS: full ROM NARRATIVE EXTREMITY EXAM: Slight tenderness over dorsal hand no obvious deformities has 2 small abrasions no lacerations Neuro: COMMON NORMALS: patient oriented x3, moves all extremities and no focal motor deficits Psych: COMMON NORMALS: mental status grossly normal, Normal thought process present and cooperative THOUGHT PROCESS: Normal thought process present Skin: COMMON NORMALS: no rashes or lesions noted GENERAL SKIN EXAM: no rashes or lesions noted Course Vital Signs: Vital signs: Vital Signs Temperature 97.6 F 06/17/25 18:35 Pulse Rate 63 06/17/25 18:46 Respiratory Rate 18 06/17/25 18:46 Blood Pressure 160/57 06/17/25 18:46 Pulse Oximetry 98 06/17/25 18:46 Oxygen Delivery Me thod Room Air 06/17/25 18:46 MDM - Extremity Injury (Upper) Medical Decision Making 45-year-old female presents here after having a cheese slicer fall on her left hand differential includes fracture, contusion. X-ray here shows no acute fracture was interpreted by me. Patient does have small abrasions no lacerations she is up-to-date on her tetanus she is stable for discharge follow- up with PCP return for worsening XR interpretation done by ED provider, pending radiology final review ED provider radiology interpretation(s): xr l hand: no acute fx Discharge Plan Discharge Patient Disposition: Home Clinical Impression: Injury of hand, left Condition: Stable Prescriptions: No Action tramadol 50 mg tablet 50 mg PO BID PRN (Reason: pain) Qty: 60 0RF clindamycin HCl [Cleocin HCl] 300 mg capsule 300 mg PO TID Qty: 30 0RF ibuprofen [Advil] 200 mg Tablet 400 - 600 mg PO Q6H PRN (Reason: Pain) oxycodone-acetaminophen [Percocet] 5-325 mg tablet 1 tab PO Q8H PRN (Reason: pain) Qty: 30 0RF Discharge Orders: Discharge ED (Routine); Ordered 06/17/25 Ordered By: Susan Hills Referrals: Sujit Stevenson MD [Primary Care Provider, Orthopaedic Foot Ankle Surgery] Discharge Diet: Advance as tolerated Discharge Activity: Resume usual activity Patient Instructions: Abrasion (ED) Print Language: [place] Coding Level of Care Code ED Education Teacher for Bob Carrero
[2025-06-17 18:35] VITALS: BP 160/57; PULSE 60; RESP 17; TEMP 36.4; O2SAT 100; BMI 31.8
[2025-06-17 18:46] VITALS: BP 160/57; PULSE 63; RESP 18; O2SAT 98
== END 2025-06-17 19:01 | disposition home or self-care (01) ==
PROVIDERS: Emergency Provider Emergency Medicine; PCP Orthopaedic Surgery Foot and Ankle Surgery
DX: S60.512A Abrasion of left hand, initial encounter (principal); W26.8XXA Contact with other sharp object(s), not elsewhere classified, initial encounter; Z87.891 Personal history of nicotine dependence
CPT/HCPCS: 73130; 99283